=== PATIENT | male | born 1990 | race Caucasian/White ===

== ENCOUNTER 2021-12-30 23:27 | Emergency (ER) | payer OTHER ==
[~2021-12-30] VITALS: Ht 177.8 cm; Wt 68.2 kg
[2021-12-30 23:35] VITALS: BP 133/83; TEMP 98.4
[2021-12-31] MEDS ORDERED: CRUTCHES MC (00:19)
[2021-12-31 00:27] VITALS: PULSE 68
== END 2021-12-31 00:27 | disposition home or self-care (01) ==
LOC: COL.ER 23:27
DX: S92.311A Displaced fracture of first metatarsal bone, right foot, initial encounter for closed fracture (principal); S92.321A Displaced fracture of second metatarsal bone, right foot, initial encounter for closed fracture; S92.331A Displaced fracture of third metatarsal bone, right foot, initial encounter for closed fracture; W20.8XXA Other cause of strike by thrown, projected or falling object, initial encounter